=== PATIENT | female | born 1965 | race American Indian/Alaskan Native ===

== ENCOUNTER 2021-03-18 07:17 | Emergency (ER) | payer OTHER ==
[2021-03-18 07:42] VITALS: BP 117/90
[2021-03-18] MEDS ORDERED: NEOMY 3.5 MG/BACIT 400 UNITS/POLY B 5000 UNITS/GM OINT PACKET TP ONE (07:48)
[2021-03-18] MEDS ORDERED: ACETAMINOPHEN 325 MG TAB PO ONE (07:48)
[2021-03-18] MEDS ORDERED: SODIUM CHLORIDE 0.9% IRR 500 ML BOTTLE IR NR (07:48)
[2021-03-18] MEDS ORDERED: LIDOCAINE (1%) 10 MG/1 ML VIAL 20 ML MDV INFILTRATI ONE (07:48)
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
[2021-03-18] MEDS ORDERED: IBUPROFEN 800 MG TAB PO ONE (08:45)
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
[2021-03-18] MEDS: HYDROcodone/ACETAMINOPHEN 5-325 MG TAB PO ONE ×3 (09:29→09:40)
[2021-03-18] MEDS: CYCLOBENZAPRINE 10 MG TAB PO ONE ×2 (09:30→09:32)
== END 2021-03-18 09:47 | disposition home or self-care (01) ==
LOC: ED 07:17
DX: S80.812A Abrasion, left lower leg, initial encounter (principal); M25.512 Pain in left shoulder; M25.532 Pain in left wrist; I10 Essential (primary) hypertension; Z79.899 Other long term (current) drug therapy; V79.59XA Passenger on bus injured in collision with other motor vehicles in traffic accident, initial encounter; Y93.89 Activity, other specified; Y92.410 Unspecified street and highway as the place of occurrence of the external cause; Y99.8 Other external cause status
CPT/HCPCS: 73030; 73120; 73590; 99284; A6250